=== PATIENT | female | born 1995 | race Two or more races ===

== ENCOUNTER 2022-08-29 09:25 | Emergency (ER) | payer SELFPAY ==
[~2022-08-29] VITALS: Ht 152.4 cm; Wt 83.9 kg
[2022-08-29] MEDS ORDERED: ASPirin 81 mg TAB PO ONE (09:45)
[2022-08-29 09:53] LABS: Basophils # (auto) 0.1 10 ^3/uL (0-0.2); Basophils % (auto) 0.8 % (0.0-2.0); Eosinophils # (auto) 0.1 10 ^3/uL (0-0.8); Eosinophils % (auto) 0.9 % (0.0-7.0); Hematocrit 42.9 % (36.0-46.0); Hemoglobin 14.4 g/dL (12.2-16.2); Lymphocytes # (auto) 2.3 10 ^3/uL (0.4-5.4); Lymphocytes % (auto) 29.9 % (10.0-50.0); Mean Corpuscular Hemoglobin 30.2 pg (28.0-32.0); Mean Corpuscular Hgb Conc. 33.6 g/dL (32.0-36.0); Mean Corpuscular Volume 89.9 fL (80.0-100.0); Monocytes # (auto) 0.7 10 ^3/uL (0-1.3); Monocytes % (auto) 8.3 % (0.0-12.0); Neutrophils # (auto) 4.7 10 ^3/uL (1.6-8.6); Neutrophils % (auto) 60.1 % (37.0-80.0); Nucleated Red Blood Cells % 0.2 %; Red Blood Cells 4.78 10^6/uL (4.0-5.20); Red Cell Distribution Width 12.8 % (11.8-14.3); White Blood Cell 7.8 10^3/uL (4.4-10.8)
[2022-08-29 10:13] LABS: Albumin 4.3 g/dL (3.4-5.0); Calcium 9.4 mg/dL (8.5-10.1); Potassium 4.1 mmol/L (3.5-5.1)
[2022-08-29 10:17] LABS: BUN/Creatinine Ratio 12.5; Bilirubin, Total 0.5 mg/dL (0.2-1.0); Total Protein 7.5 g/dL (6.4-8.2)
[2022-08-29 11:47] LABS: Urine Bacteria NONE SEEN /hpf (None Seen); Urine Blood Negative /uL (Negative); Urine Specific Gravity 1.005 (1.001-1.035); Urine WBC <1 /hpf (0 - 5)
[2022-08-29 12:00] VITALS: BP 110/74
== END 2022-08-29 12:00 | disposition home or self-care (01) ==
LOC: ER 09:25
DX: R07.89 Other chest pain (principal)
CPT/HCPCS: 36415; 71045; 80053; 81001; 84484; 85025; 93005

== ENCOUNTER 2023-12-03 11:40 | Emergency (ER) | payer BC, OTHER ==
[~2023-12-03] VITALS: Ht 152.4 cm; Wt 80.5 kg
[2023-12-03 12:34] LABS: Urine Bacteria None Seen /hpf (None Seen)
[2023-12-03 12:51] LABS: Urine Blood Negative /uL (Negative); Urine Clarity Clear (Clear); Urine Color Colorless (Yellow); Urine Protein, UAD Negative (Negative); Urine Specific Gravity 1.003 (1.001-1.035); Urine Urobilinogen Normal (Negative); Urine WBC <1 /hpf (0 - 5); Urine pH 6.5 (5.0-9.0)
[2023-12-03 15:31] VITALS: BP 131/84; PULSE 99; RESP 18; TEMP 98; O2SAT 100
== END 2023-12-03 15:49 | disposition home or self-care (01) ==
LOC: ER 11:40
DX: O20.0 Threatened abortion (principal); R10.2 Pelvic and perineal pain; O99.331 Smoking (tobacco) complicating pregnancy, first trimester; F17.210 Nicotine dependence, cigarettes, uncomplicated; Z3A.01 Less than 8 weeks gestation of pregnancy
CPT/HCPCS: 36415; 76801; 76817; 81001; 84702

== ENCOUNTER 2024-01-28 17:56 | Emergency (ER) | payer OTHER ==
[~2024-01-28] VITALS: Ht 152.4 cm; Wt 78.2 kg
[2024-01-28 18:29] VITALS: BP 153/83; RESP 16; TEMP 99.2; O2SAT 100
[2024-01-28 18:31] VITALS: PULSE 126
[2024-01-28 19:14] LABS: Urine Bacteria None Seen /hpf (None Seen); Urine WBC None Seen /hpf (0 - 5)
[2024-01-28 19:27] LABS: Basophils # (auto) 0.1 10 ^3/uL (0-0.2); Basophils % (auto) 0.5 % (0.0-2.0); Eosinophils # (auto) 0 10 ^3/uL (0-0.8); Eosinophils % (auto) 0.3 % (0.0-7.0); Hematocrit 41.2 % (36.0-46.0); Hemoglobin 14.2 g/dL (12.2-16.2); Lymphocytes # (auto) 2.9 10 ^3/uL (0.4-5.4); Lymphocytes % (auto) 27.1 % (10.0-50.0); Mean Corpuscular Hemoglobin 31.1 pg (28.0-32.0); Mean Corpuscular Hgb Conc. 34.4 g/dL (32.0-36.0); Mean Corpuscular Volume 90.5 fL (80.0-100.0); Monocytes # (auto) 0.8 10 ^3/uL (0-1.3); Monocytes % (auto) 7.1 % (0.0-12.0); Nucleated Red Blood Cells % 0.1 %; Red Blood Cells 4.56 10^6/uL (4.0-5.20); Red Cell Distribution Width 12.9 % (11.8-14.3); White Blood Cell 10.7 10^3/uL (4.4-10.8)
[2024-01-28 19:31] LABS: Urine Blood TRACE /uL (Negative); Urine Clarity Clear (Clear); Urine Color Colorless (Yellow); Urine Protein, UAD Negative (Negative); Urine Specific Gravity 1.004 (1.001-1.035); Urine Urobilinogen Normal (Negative)
[2024-01-28 19:33] LABS: Chloride 107 mmol/L (98-107); Potassium 3.9 mmol/L (3.5-5.1); Sodium 140 mmol/L (136-145)
[2024-01-28 19:34] LABS: Anion Gap 10 (5-15); Carbon Dioxide 23 mmol/L (20-30)
[2024-01-28 19:35] LABS: Calcium 10.2 mg/dL (8.7-10.4)
[2024-01-28 19:39] LABS: BUN/Creatinine Ratio 7.4 (10.0-20.0); Blood Urea Nitrogen 6 mg/dL (9-23); Glucose 92 mg/dL (74-106)
[2024-01-28] MEDS: SODIUM CHLORIDE 0.9% 1,000 ML IV ONE (21:56)
== END 2024-01-28 22:08 | disposition home or self-care (01) ==
LOC: ER 17:56
DX: N93.9 Abnormal uterine and vaginal bleeding, unspecified (principal); R10.2 Pelvic and perineal pain; F17.210 Nicotine dependence, cigarettes, uncomplicated
CPT/HCPCS: 36415; 76856; 80048; 81001; 84702; 85025; 93005

== ENCOUNTER 2024-03-02 15:13 | Emergency (ER) | payer OTHER ==
[~2024-03-02] VITALS: Ht 152.4 cm; Wt 76.3 kg
[2024-03-02] MEDS ORDERED: AMOX875T4 PO (18:32)
[2024-03-02] MEDS ORDERED: PRED20TA2 PO (18:32)
[2024-03-02] MEDS: cefTRIAXone SOD 1,000 MG VL IM ONE (18:34)
[2024-03-02] MEDS: methylPREDNISolone SOD SUCC 125 MG/2 ML VL IM ONE (18:34)
[2024-03-02 18:48] VITALS: BP 122/87; PULSE 110; RESP 17; TEMP 99; O2SAT 99
== END 2024-03-02 18:49 | disposition home or self-care (01) ==
LOC: ER 15:13
DX: J03.80 Acute tonsillitis due to other specified organisms (principal); B96.89 Other specified bacterial agents as the cause of diseases classified elsewhere
CPT/HCPCS: 96372; 99284; J0696; J2919